=== PATIENT | female | born 1970 | race Hispanic/Latino ===

== ENCOUNTER 2016-11-24 09:58 | Emergency (ER) | payer OTHER ==
[2016-11-24 10:06] VITALS: BP 134/86
[2016-11-24] MEDS ORDERED: ULTRAM50 M1 PO (10:33)
[2016-11-24] MEDS ORDERED: BACLOFEN10 M1 PO (10:33)
[2016-11-24] MEDS ORDERED: IBUPROFEN600 M1 PO (10:33)
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
== END 2016-11-24 10:40 ==
LOC: ERH 09:58
DX: S39.012A Strain of muscle, fascia and tendon of lower back, initial encounter (principal); X50.0XXA Overexertion from strenuous movement or load, initial encounter; Y92.9 Unspecified place or not applicable; Y93.9 Activity, unspecified

== ENCOUNTER 2017-01-27 09:38 | Emergency (ER) | payer OTHER ==
[~2017-01-27] VITALS: Ht 170.2 cm; Wt 82.6 kg
[~2017-01-27 09:38] MED LIST: BACLOFEN10 M1 PO; IBUPROFEN600 M1 PO; ULTRAM50 M1 PO
[2017-01-27 09:41] VITALS: BP 124/77
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
[2017-01-27] MEDS ORDERED: BACLOFEN20 M1 PO (10:08)
[2017-01-27] MEDS ORDERED: ULTRAM50 M1 PO (10:08)
== END 2017-01-27 10:17 ==
LOC: ERH 09:38
DX: M54.5 Low back pain (principal); R52 Pain, unspecified; V49.50XA Passenger injured in collision with unspecified motor vehicles in traffic accident, initial encounter; Y92.9 Unspecified place or not applicable
CPT/HCPCS: 96372; J1885

== ENCOUNTER 2017-03-05 10:54 | Emergency (ER) | payer OTHER ==
[~2017-03-05] VITALS: Ht 165.1 cm; Wt 82.6 kg
[~2017-03-05 10:54] MED LIST changes: +BACLOFEN20 M1 PO
[2017-03-05 11:04] VITALS: BP 155/98
--- NOTE | 2017-03-05 11:17 | ED NECK/BACK PAIN COMPLAINT ---
History of Present Illness General Chief Complaint: Neck/Upper Back Pain/Injury Stated Complaint: NECK AND BACK PAIN X 3 DAYS Source: patient Exam Limitations: no limitations Vital Signs & Intake/Output Vital Signs & Intake/Output Vital Signs Date Time Temp Pulse Resp B/P B/P Pulse O2 O2 Flow FiO2 Mean Ox Delivery Rate 03/05 1104 97.6 74 20 155/98 98 Room Air Room Air Allergies Coded Allergies: No Known Allergies (11/24/16) Reconcile Medications Albuterol Sulfate (Proair Hfa) 90 MCG HFA.AER.AD 2 PUF INH Q4-6 PRN PRN SHORTNESS OF BREATH (Reported) Amlodipine Besylate 5 MG TABLET 1 TAB PO DAILY BP (Reported) Baclofen 10 MG TABLET 1 TAB PO TID PRN pain Tramadol HCl 50 MG TABLET 1 TAB PO TIDP PRN pain Triage Note: PT TO ED WITH C/O LOW BACK AND NECK PAIN S/P "LIFTING MY MOM, I HAVE TO TAKE CARE OF HER". Triage Nurses Notes Reviewed? yes Onset: Abrupt Duration: day(s): (3), constant, continues in ED, getting worse Timing: single episode today Quality/Severity: moderate, sharpness Location: C-spine, lumbar spine, paraspinous muscles Radiation: none Context: lifting Loss of Consciousness: no loss of consciousness Modifying Factors: movement Associated Symptoms: lower back pain, muscle spasm, neck pain LMP (ages 10-50): unknown : No Patient currently breastfeeds: No HPI: 46-year-old female with past medical history of hypertension and asthma presents complaining of pain in her lower back and neck for the past 3 days. Patient states that for the pain started she be doing a lot of heavy lifting helping her mom who just had surgery. Pain started gradually 3 days ago and has been worsening. Pain is located in both sides of her lower back and neck and is worse with any type of movement. Patient states that when she sits at rest she does not have the pain and the pain only starts when she moves. Pain is described as cramping that is intermittent and sharp and rated as a 9 out of 10. She's been taking Tylenol and ibuprofen without any improvement. She states in the past she has had similar symptoms that have improved with tramadol. She denies any numbness, tingling, abdominal pain, urinary symptoms, fever, trauma, previous back surgeries, chest pain, shortness of breath or any other associated symptoms. (ROSELINE WONG,SANDRA) Past History Travel History Traveled to [place] past 21 day No Medical History Any Pertinent Medical History? see below for history Neurological: NONE EENT: NONE Cardiovascular: hypertension Respiratory: asthma Gastrointestinal: NONE Hepatic: NONE Renal: NONE Musculoskeletal: NONE Psychiatric: NONE Endocrine: NONE Blood Disorders: NONE Cancer(s): NONE Surgical History Surgical History: tubal ligation Psychosocial History What is your primary language Macedonian Tobacco Use: Quit >30 days ago ETOH Use: occasional use Illicit Drug Use: denies illicit drug use Family History Hx Contributory? No (SANDRA DUKES PA-C) Review of Systems Review of Systems Constitutional: Reports: no symptoms. Eyes: Reports: no symptoms. Ears, Nose, Throat, Mouth: Reports: no symptoms. Respiratory: Reports: no symptoms. Cardiovascular: Reports: no symptoms. Gastrointestinal/Abdominal: Reports: no symptoms. Musculoskeletal: Reports: see HPI, back pain, muscle pain, muscle stiffness, neck pain. Skin: Reports: no symptoms. Neurological/Psychological: Reports: no symptoms. All Other Systems: Reviewed and Negative (ROSELINE WONG,SANDRA) Physical Exam Physical Exam Neck: normal inspection, full range of motion (with pain), muscle spasm, paraspinous muscle tender, tender lateral, no midline tenderness Back: normal inspection, normal range of motion, muscle spasm, no vertebral tenderness, lumbar paraspinous muslces are tender to palpation bilaterally Extremities: non-tender, normal range of motion, no ligament instability Straight Leg Raising: Right: Negative. Left: Negative. Sensory: Medial Le: L4R, L4L. Top of Foot: 2: L5R, L5L. Motor: Deficit L4 Right: No Deficit L4 Left: No Deficit L5 Right: No Deficit L5 Left: No Deficit S1 Right: No Deficit S1 Right: No DTR: Deficit L4 Left: No Deficit L4 Right: No Deficit S1 Left: No Deficit S1 Right: No Patellar: 2: L4 Right, L4 Left. Achilles: 2: S1 Right, S1 Left. Neurologic/Psych: no motor/sensory deficits, awake, alert, oriented x 3, normal gait, normal mood/affect Skin: intact, normal color, warm/dry (ROSELINE WONG,SANDRA) Progress Differential Diagnosis: C spine injury, cauda equina syn, herniated disc, myofascial strain, sciatica, cervical radiculopathy Plan of Care: Patient seen and evaluated. She has lumbar and cervical paraspinous muscle tenderness. No midline pain, step-offs, or any low-back pain red flags. X-rays are not indicated at this time. Patient be treated with baclofen and tramadol as needed for pain. Advised her to follow up with her primary care doctor this coming week for a recheck. Discussed with patient about signs and symptoms to look out for. Rest avoid heavy lifting bending or excessive physical activity apply heating pad. I discussed with the patient at length all of their results. I had an extensive conversation regarding need for close follow up with their primary care physician this week as well as return precautions. I answered all of their questions, they feel comfortable with the plan and follow-up care. I discussed with the patient/family the medications that they will receive. I gave them signs and symptoms that could indicate an adverse reaction. I have advised them to limit their activities until they can see how they respond to the medication. (SANDRA DUKES PA-C) Departure Departure Disposition: HOME OR SELF CARE Condition: Stable Clinical Impression Primary Impression: Muscle spasm of back Referrals: JERONIMO BIGGS MD (PCP/Family) Additional Instructions: Rest, avoid heavy lifting, bending or excessive physical activity. Apply heating pad to your back. Use ibuprofen 800 mg every 8 hours as needed for pain. Baclofen as a muscle relaxer that can also be used every 12 hours as needed for pain. Tramadol can be used as needed for severe pain only this may cause drowsiness. Do not drive while taking. Make a follow-up appointment with your primary care doctor this coming week for a recheck. Return to the emergency department with any concerns. Departure Forms: Customer Survey General Discharge Information Prescriptions: Current Visit Scripts Tramadol HCl 1 TAB PO TIDP PRN pain #10 TAB Baclofen 1 TAB PO TID PRN pain #30 TAB (SANDRA DUKES PA-C) PA/RN LABOR AND DELIVERY Co-Sign Statement Statement: ED Attending supervision documentation- [] I saw and evaluated the patient. I have also reviewed all the pertinent lab results and diagnostic results. I agree with the findings and the plan of care as documented in the PA's/RN LABOR AND DELIVERY's documentation. [X] I have reviewed the ED Record and agree with the PA's/RN LABOR AND DELIVERY's documentation. [] Additions or exceptions (if any) to the PAs/RN LABOR AND DELIVERY's note and plan are summarized below: [] (DION OWENS,IVET)
[2017-03-05] MEDS ORDERED: PROAIR HFA8.5 GM INH (11:25)
[2017-03-05] MEDS ORDERED: AMLODIPINE BESYL5 M1 PO (11:25)
[2017-03-05] MEDS ORDERED: TRAMADOL HCL50 M1 PO (11:30)
[2017-03-05] MEDS ORDERED: BACLOFEN10 M1 PO (11:30)
== END 2017-03-05 11:37 ==
LOC: ERH 10:54
DX: M62.830 Muscle spasm of back (principal)